=== PATIENT | male | born 1990 | race Caucasian/White ===

== ENCOUNTER 2018-03-24 23:20 | Emergency (ER) | payer OTHER ==
[~2018-03-24] VITALS: Ht 185.4 cm; Wt 68.0 kg
[2018-03-24] MEDS ORDERED: FLAGYL500 MG PO (23:51)
[2018-03-24] MEDS ORDERED: CENTRUM SILVER1 EAC4 PO (23:52)
[2018-03-24] MEDS ORDERED: PROBIOTIC1 EAC1 PO (23:53)
[2018-03-24] MEDS ORDERED: CREON PO (23:53)
[2018-03-25 00:28] LABS: ANION GAP 11 mmol/L (7-16); BUN 10 mg/dL (7-18); CALCIUM 9.6 mg/dL (8.5-10.1); CHLORIDE 102 mmol/L (98-107); CO2 24 mmol/L (21-32); CREATININE 1.3 mg/dL (0.7-1.3); GLUCOSE 152 mg/dL (74-106); POTASSIUM 4.3 mmol/L (3.5-5.1); SODIUM 137 mmol/L (136-145)
[2018-03-25 00:30] LABS: HEMATOCRIT 52.1 % (42.0-52.0); HEMOGLOBIN 16.7 gm/dL (14.0-18.0); MCH 27.4 pg (26.0-34.0); MCHC 32.1 g/dL (28.0-37.0); MCV 85.2 fL (80.0-100.0); PLATELET COUNT 423 thou/uL (150-400); RBC 6.12 mil/uL (4.50-6.00); RDW 13.4 % (10.5-14.5); WBC 23.3 thou/uL (4.0-11.0)
[2018-03-25 00:34] LABS: ALBUMIN 4.6 g/dL (3.4-5.0); DIRECT BILIRUBIN < 0.1 mg/dL (<0.1-0.3); LIPASE 113 U/L (73-393); SGOT 39 U/L (15-37); SGPT 48 U/L (30-65); TOTAL BILIRUBIN 0.4 mg/dL (<0.1-1.0); TOTAL PROTEIN 7.8 g/dL (6.4-8.2)
[2018-03-25 01:20] LABS: ABSOLUTE NEUTROPHILS 17.2 thou/uL (1.4-8.2); ATYPICAL LYMPHS 2 %; METAMYELOCYTES 1 %
[2018-03-25 01:21] LABS: LARGE PLATELETS OCCASIONAL
[2018-03-25] MEDS ORDERED: ZOFRAN ODT4 MG PO (03:04)
[2018-03-25] MEDS ORDERED: BENTYL 20 MG TA20 M1 PO (03:04)
[2018-03-25 03:15] VITALS: BP 92/52
== END 2018-03-25 03:36 | disposition home or self-care (01) ==
LOC: ER 23:20
PROVIDERS: Emergency Medicine
DX: R11.2 Nausea with vomiting, unspecified (principal); R19.7 Diarrhea, unspecified; I95.1 Orthostatic hypotension; R10.13 Epigastric pain

== ENCOUNTER → 2019-02-08 | Emergency (ER) | payer OTHER ==
[~2019-02-08] VITALS: Ht 185.4 cm; Wt 86.2 kg
[~2019-02-08] MED LIST: BENTYL 20 MG TA20 M1 PO; CENTRUM SILVER1 EAC4 PO; CIPROFLOXACIN500 M1 PO; CREON PO; FLAGYL500 MG PO; PROBIOTIC1 EAC1 PO; ZOFRAN ODT4 MG PO
[2019-02-08 16:00] LABS: ABSOLUTE NEUTROPHILS 5.8 thou/uL (1.4-8.2); BASOPHILS 0.7 % (0.0-2.0); EOSINOPHILS 1.2 % (0.0-3.0); HEMATOCRIT 43.3 % (42.0-52.0); HEMOGLOBIN 14.4 gm/dL (14.0-18.0); MCH 27.7 pg (26.0-34.0); MCHC 33.2 g/dL (28.0-37.0); MCV 83.5 fL (80.0-100.0); MONOCYTES 9.8 % (1.0-8.0); PLATELET COUNT 340 thou/uL (150-400); POLYS 56.3 % (36.0-66.0); RBC 5.19 mil/uL (4.50-6.00); RDW 13.9 % (10.5-14.5); WBC 10.3 thou/uL (4.0-11.0)
[2019-02-08 16:10] LABS: ANION GAP 9 mmol/L (7-16); BUN 12 mg/dL (7-18); CALCIUM 8.7 mg/dL (8.5-10.1); CHLORIDE 106 mmol/L (98-107); CO2 28 mmol/L (21-32); GLUCOSE 85 mg/dL (74-106); POTASSIUM 4.4 mmol/L (3.5-5.1); SODIUM 143 mmol/L (136-145)
[2019-02-08 16:15] LABS: ALBUMIN 3.7 g/dL (3.4-5.0); DIRECT BILIRUBIN < 0.1 mg/dL (<0.1-0.3); LIPASE 79 U/L (73-393); SGOT 15 U/L (15-37); SGPT 21 U/L (30-65); TOTAL BILIRUBIN 0.4 mg/dL (<0.1-1.0); TOTAL PROTEIN 6.6 g/dL (6.4-8.2)
[2019-02-08 17:26] LABS: URINE BILIRUBIN NEGATIVE (Negative); URINE BLOOD NEGATIVE (Negative); URINE CLARITY CLEAR; URINE COLOR YELLOW; URINE GLUCOSE-RANDOM* NEGATIVE (Negative); URINE KETONES NEGATIVE (Negative); URINE LEUKOCYTES-REFLEX NEGATIVE (Negative); URINE PROTEIN (DIPSTICK) NEGATIVE (Negative); URINE SPECIFIC GRAVITY >= 1.030 (1.005-1.035); URINE UROBILINOGEN 0.2 E.U./dl (0.2-1.0)
[2019-02-08 17:28] LABS: URINE NITRITE-REFLEX POSITIVE (Negative)
[2019-02-08 17:57] LABS: CASTS None Seen /LPF (None Seen); SQUAMOUS 0-3 Few /LPF (0-3)
[2019-02-08 17:58] LABS: AMORPHOUS URATES Moderate /LPF (None Seen); BACTERIA-REFLEX >30 Many /HPF (None Seen); URINE RBC None Seen /HPF (0-2); URINE WBC-REFLEX 0-5 Rare /HPF (0-5)
[2019-02-08 18:03] LABS: URIC ACID CRYSTALS 0-3 Few /LPF (None Seen)
[2019-02-08 19:00] VITALS: BP 98/53
== END ==
LOC: ER 13:55
PROVIDERS: Emergency Medicine; Nurse Practitioner Family
DX: N39.0 Urinary tract infection, site not specified (principal); R19.7 Diarrhea, unspecified; Z91.013 Allergy to seafood; Z90.49 Acquired absence of other specified parts of digestive tract

== ENCOUNTER 2019-05-19 22:06 | Emergency (ER) | payer OTHER ==
[~2019-05-19] VITALS: Ht 185.4 cm; Wt 65.8 kg
[2019-05-19] MEDS ORDERED: NOHOMEMEDICATIONS (22:13)
[2019-05-19 23:55] LABS: BASOPHILS 0.4 % (0.0-2.0); EOSINOPHILS 1.6 % (0.0-3.0); HEMATOCRIT 36.3 % (42.0-52.0); HEMOGLOBIN 11.9 gm/dL (14.0-18.0); LYMPHOCYTES 25.9 % (24.0-44.0); MCH 27.7 pg (26.0-34.0); MCHC 32.9 g/dL (28.0-37.0); MCV 84.2 fL (80.0-100.0); MONOCYTES 9.2 % (1.0-8.0); PLATELET COUNT 253 thou/uL (150-400); POLYS 62.9 % (36.0-66.0); RBC 4.31 mil/uL (4.50-6.00); RDW 13.4 % (10.5-14.5); WBC 9.5 thou/uL (4.0-11.0)
[2019-05-20 00:13] LABS: CALCIUM 8.2 mg/dL (8.5-10.1); CREATININE 0.6 mg/dL (0.7-1.3); POTASSIUM 4.1 mmol/L (3.5-5.1)
[2019-05-20] MEDS ORDERED: KEFLEX500 M1 PO (03:03)
[2019-05-20] MEDS ORDERED: BACTRIM DS TAB1 EACH PO (03:03)
[2019-05-20] MEDS ORDERED: MOBIC15 MG PO (03:05)
[2019-05-20 04:59] VITALS: BP 116/71
== END 2019-05-20 05:07 | disposition home or self-care (01) ==
LOC: ER 22:06
PROVIDERS: Emergency Medicine
DX: L03.317 Cellulitis of buttock (principal); Z90.49 Acquired absence of other specified parts of digestive tract; Z91.013 Allergy to seafood

== ENCOUNTER → 2020-11-26 | Outpatient (CLI) | payer OTHER ==
[~2020-11-26] MED LIST changes: +BACTRIM DS TAB1 EACH PO; +KEFLEX500 M1 PO; +MOBIC15 MG PO; +NOHOMEMEDICATIONS
[2020-11-26 15:09] LABS: ABSOLUTE NEUTROPHILS 6.4 thou/uL (1.4-8.2); BASOPHILS 0.6 % (0.0-2.0); EOSINOPHILS 0.7 % (0.0-3.0); HEMATOCRIT 38.5 % (42.0-52.0); HEMOGLOBIN 12.5 gm/dL (14.0-18.0); LYMPHOCYTES 27.4 % (24.0-44.0); MCH 26.3 pg (26.0-34.0); MCHC 32.5 g/dL (28.0-37.0); MCV 80.9 fL (80.0-100.0); MONOCYTES 12.4 % (1.0-8.0); PLATELET COUNT 348 thou/uL (150-400); POLYS 58.9 % (36.0-66.0); RBC 4.75 mil/uL (4.50-6.00); RDW 14.9 % (10.5-14.5); WBC 10.8 thou/uL (4.0-11.0)
[2020-11-26 15:22] LABS: URINE BILIRUBIN NEGATIVE (Negative); URINE BLOOD TRACE (Negative); URINE CLARITY CLEAR; URINE COLOR YELLOW; URINE GLUCOSE-RANDOM* NEGATIVE (Negative); URINE KETONES NEGATIVE (Negative); URINE LEUKOCYTES-REFLEX NEGATIVE (Negative); URINE PROTEIN (DIPSTICK) NEGATIVE (Negative); URINE SPECIFIC GRAVITY 1.025 (1.005-1.035); URINE UROBILINOGEN 0.2 E.U./dl (0.2-1.0)
[2020-11-26 15:23] LABS: URINE NITRITE-REFLEX POSITIVE (Negative)
[2020-11-26 15:29] LABS: ALBUMIN 3.9 g/dL (3.4-5.0); CALCIUM 8.9 mg/dL (8.5-10.1); CREATININE 0.8 mg/dL (0.7-1.3); POTASSIUM 3.8 mmol/L (3.5-5.1); TOTAL BILIRUBIN 0.2 mg/dL (0.2-1.0); TOTAL PROTEIN 6.7 g/dL (6.4-8.2)
[2020-11-26 15:56] LABS: MUCUS 4-6 Moderate strn/LPF (None Seen); SQUAMOUS 4-10 Moderate /LPF (0-3)
[2020-11-26 15:57] LABS: CASTS None Seen /LPF (None Seen); URINE RBC 0-2 Rare /HPF (0-2); URINE WBC-REFLEX 0-5 Rare /HPF (0-5)
[2020-11-26 15:59] LABS: URIC ACID CRYSTALS 4-10 Moderate /LPF (None Seen)
[2020-11-27 01:06] LABS: IgA 108 mg/dL (90-386); IgG 468 mg/dL (603-1613)
[2020-11-27 03:06] LABS: IgM < 5 mg/dL (20-172)
== END ==
LOC: LAB 14:22
PROVIDERS: ATTEND Family Medicine
DX: A07.1 Giardiasis [lambliasis] (principal); K52.9 Noninfective gastroenteritis and colitis, unspecified; R63.4 Abnormal weight loss

== ENCOUNTER → 2020-12-15 | Outpatient (CLI) | payer OTHER ==
[~2020-12-15] MED LIST changes: +VITAMIN B-121000 MC2 SUBLING; +VITAMIN D3100 MCG PO
== END ==
LOC: LAB 09:30
PROVIDERS: ATTEND Internal Medicine Gastroenterology
DX: Z01.812 Encounter for preprocedural laboratory examination (principal); Z20.822 Contact with and (suspected) exposure to COVID-19

== ENCOUNTER → 2020-12-20 | Outpatient (CLI) | payer OTHER ==
[~2020-12-20] VITALS: Ht 185.4 cm; Wt 63.5 kg
--- NOTE | 2020-12-23 17:09 | PATH ---
[facility] [place] [address] PATHOLOGY RPT PROCEDURE Name: VLADISLAV EPSTEIN Room #: REG AYAN Carney.#: [id number] Admission: 12/20/20 Date of : 89 Discharge: Report #: [id number] Path Case #: [id number] [facility] Accession Number: [id number] . 01 Material submitted: . PART A: small bowel - SMALL BOWEL PART B: colon - RANDOM COLON . 01 Clinical history: . RECURRENT GIARDIA, BLOATING,DIARRHEA, WEIGHT LOSS HEMORRHOIDS, NORMAL . 02 Diagnosis: A. Small bowel, endoscopic biopsy: - Duodenal mucosa with villous blunting and features of chronic active enteritis. - Negative for dysplasia and malignancy. - Scattered Giardia trophozoites identified. . B. Large bowel "random", endoscopic biopsy: - Large bowel mucosa with focal active colitis, with minimal crypt architectural distortion. - Focal Giardia trophozoites identified. - Negative for granulomatous inflammation, dysplasia, and malignancy. (MLK:pit; 12/23/2020) QTP 12/23/2020 1637 Local . 02 Electronically signed: . Ángel Hernadez MD, Pathologist NPI- [id number] . 01 Gross description: . A. The specimen is received in formalin, labeled "Vladislav Epstein, biopsy small bowel". Received are multiple segments of pale taylor soft tissue ranging in size from 0.2 to 0.5 cm in maximum dimensions. The specimen is submitted entirely in cassette A1. . B. The specimen is received in formalin, labeled "Vladislav Sharlaakantaime, random colon". Received are multiple segments of pale taylor soft tissue ranging in size from 0.3 to 0.4 cm in maximum dimensions. The specimen is submitted entirely in cassette B1. (CAA; 12/22/2020) QA/[facility] 12/22/2020 1148 Local . 02 Pathologist provided ICD-10: K52.9 . 02 [place] [id number] PATHOLOGY RPT PROCEDURE Name: VLADISLAV EPSTEIN Room #: REG [facility] [id number] Admission: 12/20/20 Date of : 89 Discharge: Report #: [id number] Path Case #: [id number] [facility] . [id number], [id number] Specimen Comment: A courtesy copy of this report has been sent to [phone] Specimen Comment: [id number] Specimen Comment: Report sent to / DR LEE Performed at: [address], [place], [place] [id number] MD Aleksandr Llanes MD Phone: [phone] Performed at: [address] [id number] MD Sheila Gordon MD Phone: [phone]
== END | disposition home or self-care (01) ==
LOC: GI 07:55
PROVIDERS: ATTEND Internal Medicine Gastroenterology
DX: R63.4 Abnormal weight loss (principal); K52.9 Noninfective gastroenteritis and colitis, unspecified; K64.8 Other hemorrhoids; G51.0 Bell's palsy; Z98.890 Other specified postprocedural states; Z90.49 Acquired absence of other specified parts of digestive tract; Z79.899 Other long term (current) drug therapy; Z87.891 Personal history of nicotine dependence; Z91.013 Allergy to seafood
CPT/HCPCS: 62110; 62900

== ENCOUNTER → 2020-12-31 | Outpatient (CLI) | payer OTHER ==
[2020-12-31 11:42] LABS: ABSOLUTE NEUTROPHILS 6.8 thou/uL (1.4-8.2); BASOPHILS 0.3 % (0.0-2.0); EOSINOPHILS 0.5 % (0.0-3.0); HEMOGLOBIN 12.8 gm/dL (14.0-18.0); LYMPHOCYTES 20.2 % (24.0-44.0); MCV 81.3 fL (80.0-100.0); MONOCYTES 9.5 % (1.0-8.0); PLATELET COUNT 366 thou/uL (150-400); POLYS 69.5 % (36.0-66.0); RBC 4.92 mil/uL (4.50-6.00); RDW 15.1 % (10.5-14.5); WBC 9.8 thou/uL (4.0-11.0)
[2020-12-31 20:06] LABS: IgA 120 mg/dL (90-386)
[2020-12-31 21:05] LABS: IgM < 5 mg/dL (20-172)
[2021-01-03 22:06] LABS: TETANUS ANTIBODY 1.53 IU/mL (<0.10)
== END ==
LOC: CAT 09:11
PROVIDERS: ATTEND Allergy & Immunology
DX: R07.9 Chest pain, unspecified (principal); A07.1 Giardiasis [lambliasis]